=== PATIENT | female | born 1950 | race Asian ===

== ENCOUNTER 2018-10-17 07:51 | Day surgery (SDC) | payer SELFPAY ==
[2018-10-17] MEDS ORDERED: LR 1,000 ML IV ONE (07:59)
--- NOTE | 2018-10-17 08:50 | PDANEPAE ---
ANE History of Present Illness pancreatic cyst ANE Past Medical History - Cardiovascular History Hx Hypertension: Yes Hx Arrhythmias: No Hx Chest Pain: No Hx Coronary Artery / Peripheral Vascular Disease: No Hx CHF / Valvular Disease: No Hx Palpitations: No - Pulmonary History Hx COPD: No Hx Asthma/Reactive Airway Disease: No Hx Recent Upper Respiratory Infection: No Hx Oxygen in Use at Home: No Hx Sleep Apnea: No Sleep Apnea Screening Result - Last Documented: Positive - Neurologic History Hx Cerebrovascular Accident: No Hx Seizures: No Hx Dementia: No - Endocrine History Hx Diabetes: No Hypothyroid: No Hyperthyroid: No Obesity: no - Renal History Hx Renal Disorders: No - Liver History Hx Hepatic Disorders: No - Neurological & Psychiatric Hx Hx Neurological and Psychiatric Disorders: No - Cancer History Hx Cancer: No - Congenital Disorder History Hx Congenital Disorders: No - GI History GERD: no Hx Gastrointestinal Disorders: Yes Gastrointestinal History Comment: abdominal US and ct scan shows small tumor on pancreas - Other Health History Other Health History: UTI. COLD. IMPLANT IN FRONT - Chronic Pain History Chronic Pain: No - Surgical History Prior Surgeries: none ANE Review of Systems Review of systems is: negative Review of Systems: - Exercise capacity METS (RN): 4 METS ANE Patient History - Allergies Allergies/Adverse Reactions: Penicillins Allergy (Verified 10/13/18 12:28) Other-Enter Comments - Home Medications Home medications: home medication list seen and reviewed Home Medications: Amlodipine Besylate 10/13/18 [Last Taken 10/17/18] - NPO status NPO Status: no food or drink >8 hours NPO Since - Liquids (Date): 10/16/18 NPO Since - Liquids (Time): 21:00 NPO Since - Solids (Date): 10/16/18 NPO Since - Solids (Time): 21:00 - Anes Hx Anes Hx: no prior problems - Smoking Hx Smoking Status: Never smoked - Family Anes Hx Family Anes Hx: none Family Hx Anesthesia Complications: none ANE Labs/Vital Signs - Vital Signs Blood Pressure: 146/76 Heart Rate: 70 Respiratory Rate: 16 O2 Sat (%): 95 Height: 154.94 cm Weight: 60.328 kg ANE Physical Exam - Airway Neck exam: FROM Mallampati Score: Class 2 Mouth exam: normal dental/mouth exam - Pulmonary Pulmonary: no respiratory distress, clear to auscultation - Cardiovascular Cardiovascular: regular rate and rhythym, no murmur, rub, or gallop - ASA Status ASA Status: II ANE Anesthesia Plan Anesthesia Plan: GA with mask Total IV Anesthesia: Yes
[2018-10-17] MEDS ORDERED: PROPOFOL/EMULSION 500 MG/50 ML BOTTLE IV ONE ×2 (09:05→09:37)
--- NOTE | 2018-10-17 09:13 | PDGENHP ---
History & Physical Chief Complaint: abnl imaging History of Present Illness: 68 year old female presents for evaluation of abnormal imaging. Panc cyst? Pertinent Past, Social, Family History: PMHx: None. PSurghx: None Relevant Physical Exam: HEENT: anicteric. CV: RRR +s1s2. Lungs: CTAB. Abd: soft, nt, + bs Cardiorespiratory Assessment: ASA 2
[2018-10-17] MEDS ORDERED: NS 500 ML IV SCH (09:15)
[2018-10-17] MEDS ORDERED: INDOMETHACIN 50 MG SUPP PR PRN (09:15)
[2018-10-17] MEDS ORDERED: NALOXONE HCL 0.4 MG/ML INJ IVP PRN (09:30)
--- NOTE | 2018-10-17 09:30 | POSTANESTH ---
Post Anesthetic Evaluation Cardiovascular Status: Normal, Stable Respiratory Status: Normal, Stable Level of Consciousness/Mental Status: Can Participate in Eval Pain Control: Adequate, Prn Tx Ordered Nausea/Vomiting Control: Adequate, Prn Tx Ordered Complications Possibly Related to Anesthesia: None Noted
[2018-10-17] MEDS ORDERED: PROPOFOL 200 MG/20 ML VIAL ONE (10:24)
--- NOTE | 2018-10-17 11:50 | GIREPORT ---
[facility] Surgical Services - Endoscopy Department Patient Name: Kimberlee Sin Procedure Date: 10/17/2018 8:58 AM Patient Type: Ambulatory Attending MD/ ER Physician: Attila Le MD Procedure: Upper EUS Indications: Suspected mass in pancreas on CT scan Patient Profile: 68 year old female presents for evaluation of weight loss and abnormal imaging. She had a CT scan which showed a possible pancreatic mass. Providers: Attila Le MD Medicines: Monitored Anesthesia Care Complications: No immediate complications. Estimated blood loss: Minimal. Description of Procedure: After obtaining informed consent, the endoscope was passed under direct vision. Throughout the procedure, the patient's blood pressure, pulse, and oxygen saturations were monitored continuously. The Endosonoscope was introduced through the mouth, and advanced to the second part of duoden um. The Endoscope was introduced through the mouth, and advanced to the sec ond part of duodenum. The upper EUS was accomplished without difficulty. Th e esophagus, stomach, and duodenum were visualized endosonographically. T he patient tolerated the procedure well. Findings: ENDOSCOPIC FINDING: : The examined esophagus was normal. Patchy mildly erythematous mucosa was found in the gastric body and in the gastric antrum. Biopsies were taken with a cold forceps for histology. One non-bleeding superficial gastric ulcer was found in the gastric ant rum. The lesion was 2 mm in largest dimension. The examined duodenum was normal. ENDOSONOGRAPHIC FINDING: : A round mass was identified in the proximal pancreatic body/neck. The m ass was isoechoic and very subtle. The mass measured 10 mm by 10 mm in maxi mal cross-sectional diameter. The endosonographic borders were poorly-defin ed. Fine needle biopsy was performed. Color Doppler imaging was utilized pr ior to needle puncture to confirm a lack of significant vascular structures within the needle path. Two passes were made with the 22 gauge ultrasou nd biopsy needle using a transduodenal approach. A visible core of tissue was obtained. Touch preps were performed. The cellularity of the specimen w as adequate. Final cytology results are pending. No obvious vessel invasio n but close to suspected SMV. There was no sign of significant endosonographic abnormality in the com mon bile duct. Minimal hyperechoic material consistent with sludge and a few small sto peggy were visualized endosonographically in the gallbladder. There was no sign of significant endosonographic abnormality in the visualized portion of the liver. No masses were identified. No lymphadenopathy seen. Estimated Blood Loss: Estimated blood loss was minimal. Post Op Diagnosis: - Normal esophagus. - Erythematous mucosa in the gastric body and antrum. Biopsied. - Non-bleeding gastric ulcer. - Normal examined duodenum. - A mass was identified in the pancreatic body. Fine needle biopsy perf ormed. - There was no sign of significant pathology in the common bile duct. - Hyperechoic material consistent with sludge was visualized endosonographically in the gallbladder. - There was no evidence of significant pathology in the visualized port ion of the liver. Recommendation: - Discharge patient to home (with escort). - Clear liquid diet. - Continue present medications. - Await cytology results and await path results. - No aspirin products. - Thank you for allowing me to participate in the care of your patient. Attending Participation: I personally performed the entire procedure. Attila Le MD Attila Le MD 10/17/2018 11:49:52 AM This report has been signed electronicallyAttila Le MD Number of Addenda: 0 Note Initiated On: 10/17/2018 8:58 AM [email or web address]
[2018-10-17 12:28] VITALS: BP 117/65
== END 2018-10-17 12:40 | disposition home or self-care (01) ==
LOC: FSGY 07:51
PROVIDERS: ATTEND Internal Medicine Gastroenterology
DX: C25.9 Malignant neoplasm of pancreas, unspecified (principal)
CPT/HCPCS: J2704